=== PATIENT | female | born 1970 | race Caucasian/White ===

== ENCOUNTER → 2018-01-23 | Outpatient (CLI) | payer OTHER ==
--- NOTE | 2018-01-24 13:19 | MM ---
Reason for exam: screening (asymptomatic). Last mammogram was performed 2 years and 11 months ago. Physical Findings: A clinical breast exam by your physician is recommended on an annual basis and results should be correlated with mammographic findings. MG Screening Mammo w CAD Bilateral CC and MLO view(s) were taken. Prior study comparison: February 17, 2015, bilateral MG screening mammo w CAD. March 04, 2013, left diagnostic mammogram w/CAD. There are scattered fibroglandular densities. There is chronic nodularity in the left breast. There is no dominant lesion. Asymmetric breast tissue in the left breast, upper aspect, stable. Benign right axillary lymph nodes are stable. ASSESSMENT: Benign, BI-RAD 2 RECOMMENDATION: Routine screening mammogram of both breasts in 1 year.
== END | disposition home or self-care (01) ==
LOC: RADMAMWWP 16:55
PROVIDERS: ATTEND Family Medicine
DX: Z12.31 Encounter for screening mammogram for malignant neoplasm of breast (principal)
CPT/HCPCS: 77067

== ENCOUNTER → 2019-08-20 | Outpatient (CLI) | payer OTHER ==
--- NOTE | 2019-08-21 10:19 | MM ---
Reason for exam: screening (asymptomatic). Last mammogram was performed 1 year and 7 months ago. Physical Findings: A clinical breast exam by your physician is recommended on an annual basis and results should be correlated with mammographic findings. MG Screening Mammo w CAD Bilateral CC and MLO view(s) were taken. Prior study comparison: January 23, 2018, bilateral MG screening mammo w CAD. February 17, 2015, bilateral MG screening mammo w CAD. There are scattered fibroglandular densities. There is no discrete abnormality. No significant changes when compared with prior studies. ASSESSMENT: Negative, BI-RAD 1 RECOMMENDATION: Routine screening mammogram of both breasts in 1 year.
== END | disposition home or self-care (01) ==
LOC: RADMAMWWP 07:33
PROVIDERS: ATTEND Family Medicine
DX: Z12.31 Encounter for screening mammogram for malignant neoplasm of breast (principal)
CPT/HCPCS: 77067

== ENCOUNTER → 2020-06-02 | Outpatient (CLI) | payer OTHER ==
--- NOTE | 2020-06-02 22:44 | MR ---
EXAMINATION TYPE: MR lumbar spine wo con DATE OF EXAM: 06/02/2020 COMPARISON: NONE HISTORY: low back pain into left leg since mid December per patient. Absent Ankle Reflex Per Order. TECHNIQUE: Multiplanar, multisequence imaging of the lumbar spine is performed without IV contrast. FINDINGS: Sagittal images of the lumbar spine show vertebral body height to appear satisfactory. Subt le grade 1 retrolisthesis L5 on S1. Disc desiccation L4-L5 and L5-S1 levels. Mild disc space narrowin g L5-S1 level. The conus medullaris is normal in position and signal ending L1-L2 disc space. The b one marrow signal intensity is within normal limits. Axial images show the T12-L1 and L1-L2 levels to appear within normal limits. Axial images at the L2-L3 level and the L3-L4 levels show mild/moderate facet degenerative changes bi laterally. Spinal canal is preserved. Bilateral neural foramina are patent. Axial images at the L4-L5 level shows mild facet degenerative changes bilaterally. Spinal canal is pr eserved. Bilateral neural foramina are patent. Increased signal posteriorly consistent with annular t ear is noted axial image 7. Axial images at the L5-S1 level show moderate facet degenerative changes bilaterally. There is centra l disc protrusion but spinal canal is preserved as there is increased epidural fat at this level. Kahlil ateral neural foramina are patent. Paraspinal muscle bulk is maintained. There is partial visualization of a exophytic 2.7 cm lesion in AP diameter posteriorly in the left kidney in the upper to mid pole level of T1 and T2 hypointensity axial image 28, suspect proteinaceous cyst. Solid mass not excluded. Follow-up advised. IMPRESSION: Mild multilevel degenerative changes mid to lower lumbar spine as detailed above. Follow- up for exophytic left renal lesion advised. A Yellow level critical message alert has been initiated for Denzel Mckee DO via the [employer] Critical Results System on 06/02/2020 10:42 PM. This message alert has been sent to Denzel gardner DO via the preferences provided by the clinician for the receipt of Radiology Critical Findings . Message ID [id number].
== END | disposition home or self-care (01) ==
LOC: RADMRIMAIN 16:00
PROVIDERS: ATTEND Family Medicine
DX: M47.816 Spondylosis without myelopathy or radiculopathy, lumbar region (principal); M47.817 Spondylosis without myelopathy or radiculopathy, lumbosacral region
CPT/HCPCS: 72148

== ENCOUNTER → 2020-07-28 | Outpatient (CLI) | payer OTHER ==
[2020-07-28 14:11] LABS: African American GFR (CKD) >90 (>60 ml/min/1.73 sqM); Blood Urea Nitrogen 14 mg/dL (7-17); Non-African American GFR(CKD) >90 (>60 ml/min/1.73 sqM)
--- NOTE | 2020-07-28 14:58 | CT ---
EXAMINATION TYPE: CT abdomen wo/w con DATE OF EXAM: 07/28/2020 COMPARISON: HISTORY: Disorder of kidneys CT DLP: 1485.3 mGycm Automated exposure control for dose reduction was used. TECHNIQUE: Helical acquisition of images was performed from the lung bases through the top of iliac crest to include entire abdomen pre- and post-IV contrast. CONTRAST: Performed with Oral Contrast and without and with IV Contrast, patient injected with 100 mL of Isovue 300. FINDINGS: LUNG BASES: No significant abnormality is appreciated. LIVER/GB: No significant abnormality is appreciated. PANCREAS: No significant abnormality is seen. SPLEEN: No significant abnormality is seen. ADRENALS: No significant abnormality is seen. KIDNEYS: Exophytic focus at the posterior aspect of the midpole the left kidney measures approximatel y 3.9 cm. Hounsfield unit measurements are elevated at 47 precontrast and are stable at 47 on post co ntrast delayed images. Small parapelvic cyst is suspected adjacent to the renal pelvis on the left. T here are no renal calcifications or hydronephrosis. There are symmetric nephrograms, kidneys excrete contrast unremarkably. BOWEL: No significant abnormality is seen. LYMPH NODES: No significant abnormality is appreciated. OSSEOUS STRUCTURES: No significant abnormality is seen. FREE AIR: No Free Air visible ASCITES: None visible. RETROPERITONEAL ADENOPATHY: No Retroperitoneal Adenopathy visible. OTHER: IMPRESSION: FINDINGS LIKELY REPRESENT A PROTEINACEOUS LEFT RENAL CYST, FOLLOW-UP TO ASSESS FOR STABILITY.
== END | disposition home or self-care (01) ==
LOC: RADCTMAIN 13:02
PROVIDERS: ATTEND Family Medicine
DX: N28.89 Other specified disorders of kidney and ureter (principal)
CPT/HCPCS: 82565; 84520; 74170; 36415; Q9967

== ENCOUNTER → 2021-10-06 | Outpatient (CLI) | payer OTHER ==
--- NOTE | 2021-10-06 11:10 | XR ---
EXAMINATION TYPE: XR ankle complete LT DATE OF EXAM: 10/06/2021 COMPARISON: None HISTORY: Pain TECHNIQUE: 3 view left ankle FINDINGS: Ankle mortise is intact. Joint spaces preserved. Soft tissues are normal. No acute fracture or dislocation is evident. Small Achilles tendon calcaneal heel spurs noted. Follow up exams can be performed 7-10 days from acu te trauma for continued pain. IMPRESSION: 1. Normal-appearing three-view left ankle.
== END | disposition home or self-care (01) ==
LOC: RADXRMAIN 09:30
PROVIDERS: ATTEND Nurse Practitioner Family
DX: M25.572 Pain in left ankle and joints of left foot (principal)

== ENCOUNTER → 2022-04-13 | Outpatient (CLI) | payer OTHER ==
--- NOTE | 2022-04-13 17:45 | CT ---
EXAMINATION TYPE: CT abdomen wo/w con CT DLP: 1892 mGycm, Automated exposure control for dose reduction was used. DATE OF EXAM: 04/13/2022 3:13 PM COMPARISON: CT abdomen pelvis 07/28/2020 . CLINICAL INDICATION:Female, 52 years old with history of N28.1 Cyst of kidney; TECHNIQUE: Standard CT of the abdomen before and after the uneventful administration of 100 cc of I sovue-300 intravenously. Oral contrast was administered. Coronal and sagittal reformats were performe d. FINDINGS: LOWER CHEST: Unremarkable ABDOMEN LIVER: Unremarkable GALLBLADDER AND BILE DUCTS: Unremarkable. PANCREAS: Unremarkable. SPLEEN: Unremarkable. ADRENAL GLANDS: Unremarkable. KIDNEYS AND URETERS: No evidence of hydronephrosis. Nonobstructive 2 mm calculus within the superior pole of the left kidney. Stable exophytic posterior left mid kidney lesion measuring 3.9 cm with a Ho unsfield unit of 38 on the noncontrast imaging. This demonstrates a Hounsfield unit of 45 on the post contrast imaging with a Hounsfield unit of 41 on the delayed phase. There are symmetric nephrograms, kidneys excrete contrast unremarkably. PELVIS BLADDER: Unremarkable REPRODUCTIVE: Unremarkable. ABDOMEN & PELVIS STOMACH AND BOWEL: Stomach and duodenum are unremarkable. No focal wall thickening. The visualized ap pendix is unremarkable. No evidence of bowel obstruction. PERITONEUM: No evidence of pneumoperitoneum or free fluid. VASCULATURE: No evidence of aortic aneurysm. MUSCULOSKELETAL: No acute osseous abnormalities LYMPH NODES: No gross evidence for lymphadenopathy. SOFT TISSUE/ABDOMINAL WALL: Small fat filled lumbrical hernia. IMPRESSION: Stable 3.9 cm left renal cyst. This demonstrates attenuation most consistent with a proteinaceous/hem orrhagic cyst.
--- NOTE | 2022-04-14 14:27 | MM ---
Reason for Exam: Screening (asymptomatic). Last mammogram was performed 2 year(s) and 7 month(s) ago. Patient History: Menarche at age 17. First Full-Term at age 32. Late child-bearing (after 32). Premenopausal. Risk Values: Latha 5 year model risk: 1.2%. NCI Lifetime model risk: 11.1%. Prior Study Comparison: 02/17/2015 Bilateral Screening Mammogram, [facility]. 01/23/2018 Bilateral Screening Mammogram, [facility]. 08/20/2019 Bilateral Screening Mammogram, [facility]. Tissue Density: There are scattered fibroglandular densities. Findings: Analyzed By CAD. Chronic nodules are within the left breast present previously. No suspicious groups of microcalcifications, spiculated or lobular masses, architectural distortion or other secondary signs of malignancy are mammographically apparent. Overall Assessment: Benign, BI-RAD 2 Management: Screening Mammogram of both breasts in 1 year. A negative mammogram report should not preclude additional follow up of suspicious palpable abnormalities. Patient should continue monthly self breast exam. A clinical breast exam by your physician is recommended on an annual basis and results should be correlated with mammographic findings. Electronically signed and approved by: Ralf Canales D.O. Radiologis
== END | disposition home or self-care (01) ==
LOC: RADMAMWWP 13:51
PROVIDERS: ATTEND Family Medicine
DX: Z12.31 Encounter for screening mammogram for malignant neoplasm of breast (principal); N28.1 Cyst of kidney, acquired
CPT/HCPCS: 77067; 74170; Q9967

== ENCOUNTER → 2023-10-16 | Outpatient (CLI) | payer BC ==
--- NOTE | 2023-10-16 17:57 | US ---
EXAMINATION TYPE: US pelvis complete DATE OF EXAM: 10/16/2023 COMPARISON: NONE CLINICAL INDICATION: Female, 53 years old with history of N92.1 EXCESSIVE AND FREQUENT MENSTRUATION W ITH IRR; BREAKTHROUGH BLEEDING AFTER EXERCISE X A FEW YEARS after ablation 10 years ago TECHNIQUE: Transabdominal (TA). Transabdominal sonographic images of the pelvis were acquired. TV declined Date of LMP: 10 years ago EXAM MEASUREMENTS: Uterus: 10.3x3.7x4.7 cm Endometrial Stripe: 0.5 cm Right Ovary: 3.7x3.6x1.1 cm Left Ovary: 3.0x2.3x1.8 cm 1. Uterus: Anteverted wnl 2. Endometrium: wnl 3. Right Ovary: wnl 4. Left Ovary: dominant follicle vs cyst: 1.5x1.6x1.2cm Spectral, color and waveform doppler imaging shows good arterial and venous flow within the ovaries ; there is no evidence for ovarian torsion. 5. Bilateral Adnexa: Obscured by overlying bowel gas 6. Posterior cul-de-sac: wnl exam slightly limited by bowel gas and body habitus IMPRESSION: Dominant follicle or cyst left ovary. Otherwise unremarkable study.
== END | disposition home or self-care (01) ==
LOC: RADUSWWP 15:58
PROVIDERS: ATTEND Family Medicine
DX: N83.02 Follicular cyst of left ovary (principal); N92.1 Excessive and frequent menstruation with irregular cycle
CPT/HCPCS: 76856

== ENCOUNTER → 2023-10-16 | Outpatient (CLI) | payer BC ==
--- NOTE | 2023-10-17 20:47 | MM ---
Reason for Exam: Screening (asymptomatic). Last mammogram was performed 1 year(s) and 6 month(s) ago. Patient History: Menarche at age 17. First Full-Term at age 32. Late child-bearing (after 32). Postmenopausal. Risk Values: Latha 5 year model risk: 1.3%. NCI Lifetime model risk: 11.0%. Prior Study Comparison: 01/23/2018 Bilateral Screening Mammogram, [facility]. 08/20/2019 Bilateral Screening Mammogram, [facility]. 04/13/2022 Bilateral MG screening mammo w CAD, [facility]. Tissue Density: There are scattered fibroglandular densities. Findings: Analyzed By CAD. Chronic nodularity on the left. Unchanged areas of bilateral right asymmetric density. There is no suspicious group of microcalcifications or new suspicious mass in either breast. Overall Assessment: Benign, BI-RAD 2 Management: Screening Mammogram of both breasts in 1 year. . Patient should continue monthly self-breast exams. A clinical breast exam by your physician is recommended on an annual basis. This exam should not preclude additional follow-up of suspicious palpable abnormalities. Note on Latha scores and lifetime risk: 1. A Latha score greater than 3% is considered moderate risk. If this is the case, consider specialist referral to assess eligibility for a risk reducing agent. 2. If overall lifetime risk for the development of breast cancer is 20% or higher, the patient may qualify for future screening with alternating mammogram and breast MRI. Electronically signed and approved by: Elisa Barajas M.D. Radiologist
== END | disposition home or self-care (01) ==
LOC: RADMAMWWP 16:01
PROVIDERS: ATTEND Family Medicine
DX: Z12.31 Encounter for screening mammogram for malignant neoplasm of breast (principal); Z78.0 Asymptomatic menopausal state
CPT/HCPCS: 77063; 77067

== ENCOUNTER 2024-02-16 11:19 | Day surgery (SDC) | payer BC ==
[2024-02-16] MEDS: LACTATED RINGERS 1,000 ML IV SCH (11:44)
[2024-02-16] MEDS ORDERED: PROPOFOL 10 MG/ML 20 ML VIAL IV ONE (11:52)
[2024-02-16] MEDS ORDERED: MIDAZOLAM 2 MG/2 ML VIAL ONE (11:52)
[2024-02-16] MEDS ORDERED: fentaNYL (PF) 50 MCG/ML 2 ML AMP ONE (11:52)
[2024-02-16 12:03] LABS: Glucose,Whole Blood 93 mg/dL (70-110)
--- NOTE | 2024-02-16 12:14 | P.PCN ---
Date of Procedure: 02/16/24 Procedure(s) Performed: BRIEF HISTORY: Patient is a 53-year-old pleasant white female scheduled for an elective colonoscopy as a part of screening for colon cancer/positive Cologuard. PROCEDURE PERFORMED: Colonoscopy with snare polypectomy. PREOPERATIVE DIAGNOSIS: Screening for colon cancer/positive Cologuard. IV sedation per Anesthesia. PROCEDURE: After informed consent was obtained, the patient, was brought into the endoscopy unit. IV sedation was administered by Anesthesia under continuous monitoring. Digital rectal examination was normal. Initially the Olympus CF-160 flexible video colonoscope was then inserted in the rectum, gradually advanced into the cecum without any difficulty. Careful examination was performed as the scope was gradually being withdrawn. Ileocecal valve and the appendiceal orifice were visualized and appeared normal. Prep was excellent. Mucosa of the cecum, ascending colon, transverse colon, appeared normal. In the proximal descending colon at 60 cm from anal verge there was a 1.5 cm flat polyp that was removed by snare polypectomy. Rest of the descending colon, sigmoid colon, and rectum appeared normal. Scattered sigmoid diverticulosis. Retroflexion was performed in the rectum and no lesions were seen. The patient tolerated the procedure well. IMPRESSION: 1.5 cm flat proximal descending colon polyp status post snare polypectomy Scattered sigmoid diverticulosis RECOMMENDATIONS: Findings of this examination were discussed with the patient as well as her family. She was advised to follow-up with the biopsy results. If the biopsy reveals adenoma she can have repeat colonoscopy in 3 years.
[2024-02-16 12:26] VITALS: RESP 16; TEMP 97.3
[2024-02-16 13:20] VITALS: BP 112/66; PULSE 55
== END 2024-02-16 12:55 | disposition home or self-care (01) ==
LOC: ORWHC2ENDO 11:19
PROVIDERS: ATTEND Internal Medicine Gastroenterology
DX: D12.4 Benign neoplasm of descending colon (principal); K57.30 Diverticulosis of large intestine without perforation or abscess without bleeding; J45.909 Unspecified asthma, uncomplicated; E03.9 Hypothyroidism, unspecified; K21.9 Gastro-esophageal reflux disease without esophagitis; Z79.51 Long term (current) use of inhaled steroids; Z79.899 Other long term (current) drug therapy; Z79.890 Hormone replacement therapy
CPT/HCPCS: 81025; 88305; 45385; J2250; J3010; J2704